=== PATIENT | male | born 1950 | race African-American/Black ===

== ENCOUNTER 2019-05-03 00:11 | Inpatient (IN) | payer OTHER, MEDICARE ==
[~2019-05-03] VITALS: Ht 182.9 cm; Wt 99.8 kg
[2019-05-03] MEDS ORDERED: NIFE30ER PO (00:25)
[2019-05-03] MEDS ORDERED: POTA8 PO (00:26)
[2019-05-03] MEDS ORDERED: HYDCHL12.5 PO (00:26)
[2019-05-03 00:57] LABS: BASOPHILS ABSOLUTE AUTO 0.02 K/mm3 (0.00-0.23); BASOPHILS PERCENT AUTO 0 % (0-2); EOSINOPHILS ABSOLUTE AUTO 0.01 K/mm3 (0.00-0.68); EOSINOPHILS PERCENT AUTO 0 % (0-6); Hematocrit 45.5 % (37.0-53.0); Hemoglobin 15.2 g/dL (13.5-17.5); IMMATURE GRAN ABSOLUTE AUTO 0.05 K/mm3 (0.00-0.10); IMMATURE GRAN PERCENT AUTO 0 % (0-1); LYMPHOCYTES ABSOLUTE AUTO 1.74 K/mm3 (0.84-5.20); LYMPHOCYTES PERCENT AUTO 14 % (21-46); MONOCYTES ABSOLUTE AUTO 1.15 K/mm3 (0.16-1.47); MONOCYTES PERCENT AUTO 9 % (4-13); Mean Corpuscular HGB 27.9 pg (26.0-34.0); Mean Corpuscular HGB Conc 33.4 g/dL (31.5-36.5); Mean Corpuscular Volume 84 fL (80-100); Mean Platelet Volume 9.1 fL (9.1-12.4); NEUTROPHILS ABSOLUTE AUTO 9.65 K/mm3 (1.96-9.15); NEUTROPHILS PERCENT AUTO 76 % (41-73); Platelet Count 371 K/mm3 (150-400); RDW Coefficient Variation 13.2 % (11.7-14.2); RDW Standard Deviation 40.1 fL (35.1-46.3); Red Blood Cell Count 5.45 M/mm3 (4.30-5.90); White Blood Cell Count 12.62 K/mm3 (4.00-11.30)
[2019-05-03 01:20] LABS: Albumin, Blood 4.1 g/dL (3.4-5.0); Albumin/Globulin Ratio 1.2 (0.8-1.8); Bilirubin, Total 1.1 mg/dL (0.1-1.0); Bun/Creatinine Ratio 25.2 (12.0-20.0); Calcium, Blood 9.2 mg/dL (8.5-10.1); Creatinine, Blood 1.35 mg/dL (0.60-1.20); Globulin, Blood 3.5 g/dL (2.2-4.0); Magnesium, Blood 2.3 mg/dL (1.6-2.4); Potassium, Blood 3.3 mmol/L (3.5-5.5); Total Protein, Blood 7.6 g/dL (6.4-8.2)
[2019-05-03 01:48] LABS: Source, Urine Clean Catch
[2019-05-03 01:57] LABS: Blood, Urine 1+ (Neg); Glucose Qualitative, Urine Neg (Neg); Ketones, Urine 3+ (Neg); Leukocyte Esterase, Urine 1+ (Neg); Nitrite, Urine Neg (Neg); Protein, Urine 3+ (Neg); Urobilinogen, Urine 2+ (Normal)
[2019-05-03 02:00] LABS: Bilirubin, Urine 1+ (Neg); Color, Urine Amber (P-Yellow)
[2019-05-03 02:03] LABS: Appearance, Urine Hazy (Clear)
[2019-05-03 02:05] LABS: Bacteria Mod /hpf; Hyaline Casts 0-2 /lpf (0-2); Mucus Light ({null, 0-Heavy}); Red Blood Cells, Urine 0-2 /hpf (0-2); Squamous Epithelial Cells Few /hpf (Few)
--- NOTE | 2019-05-03 05:40 | NUR ---
PT alert and oriented x4. Vital signs stable. No complaints of pain or nausea. NG tube in place on Low-int suction. IVF infusing. NPO
--- NOTE | 2019-05-03 18:05 | NUR ---
SHIFT SUMMARY PT A&O, VITALS WITHIN BASELINE. AMBULATES IND TO BATHROOM AND REPORTS PASSING FLATUS TODAY. DENIED PAIN T/O SHIFT. NG PATENT AND DRAINING BROWN LIQUID. IV FLUIDS RUNNING WITHOUT DIFFICULTY. NO ACUTE CHANGES. PT CURRENTLY RESTING IN BED WITH CALL LIGHT WITHIN REACH.
[2019-05-04 04:08] LABS: BASOPHILS ABSOLUTE AUTO 0.05 K/mm3 (0.00-0.23); BASOPHILS PERCENT AUTO 0 % (0-2); EOSINOPHILS ABSOLUTE AUTO 0.14 K/mm3 (0.00-0.68); EOSINOPHILS PERCENT AUTO 1 % (0-6); Hematocrit 44.1 % (37.0-53.0); Hemoglobin 14.7 g/dL (13.5-17.5); IMMATURE GRAN ABSOLUTE AUTO 0.06 K/mm3 (0.00-0.10); IMMATURE GRAN PERCENT AUTO 1 % (0-1); LYMPHOCYTES ABSOLUTE AUTO 1.89 K/mm3 (0.84-5.20); LYMPHOCYTES PERCENT AUTO 14 % (21-46); MONOCYTES PERCENT AUTO 11 % (4-13); Mean Corpuscular HGB 28.1 pg (26.0-34.0); Mean Corpuscular HGB Conc 33.3 g/dL (31.5-36.5); Mean Corpuscular Volume 84 fL (80-100); NEUTROPHILS ABSOLUTE AUTO 9.67 K/mm3 (1.96-9.15); NEUTROPHILS PERCENT AUTO 73 % (41-73); Platelet Count 335 K/mm3 (150-400); RDW Coefficient Variation 13.4 % (11.7-14.2); RDW Standard Deviation 41.4 fL (35.1-46.3); Red Blood Cell Count 5.24 M/mm3 (4.30-5.90); White Blood Cell Count 13.21 K/mm3 (4.00-11.30)
[2019-05-04 04:28] LABS: Albumin, Blood 3.5 g/dL (3.4-5.0); Anion Gap 10 mmol/L (6-16); Blood Urea Nitrogen 26 mg/dL (8-24); Bun/Creatinine Ratio 22.4 (12.0-20.0); CO2, Blood 27 mmol/L (21-32); Calcium, Blood 8.7 mg/dL (8.5-10.1); Chloride, Blood 104 mmol/L (98-108); Creatinine, Blood 1.16 mg/dL (0.60-1.20); Glomerular Filtration Rate >60 (60-); Glucose, Blood 94 mg/dL (70-99); Phosphorus, Blood 2.7 mg/dL (2.5-4.9); Potassium, Blood 2.8 mmol/L (3.5-5.5); Sodium, Blood 141 mmol/L (136-145)
--- NOTE | 2019-05-04 06:08 | NUR ---
SHIFT SUMMARY: PT HAS DONE WELL THIS SHIFT. DENIES PAIN AND N/V. NG TUBE IN PLACE CONNECTED TO LOW INTERMITTENT SUCTION. TOTAL OF 140ML FOR OUTPUT. NPO WITH FLUIDS INFUSING. PT INDEPENDENT IN ROOM. VOIDING WELL. PT REPORTS PASSING GAS. BP STABLE WITH IV HYDRALAZINE.
--- NOTE | 2019-05-04 17:49 | NUR ---
SHIFT SUMMARY PT CONTINUING TO DO WELL THIS SHIFT. KELLEY NGT BEING CLAMPED FOR 3.5 HOURS WITH NO N/V OR ABD PAIN. NGT DC'D AT THIS TIME PER ORDERS. PT REPORTS PASSING SMALL AMOUNT OF GAS INTERMITTENTLY TODAY. ABD IS STILL MODERATELY DISTENDED, BUT SOFT TO TOUCH. HYPERACTIVE BTS X4 QUAD. PLAN IS TO ADV DIET TO CLEAR LIQ IN MORNING. PT UP INDEP IN ROOM TO SIT UP IN BED AND AMBULATING AROUND ROOM FREQUENTLY. USES CALL LIGHT APPROPRIATELY.
[2019-05-05 04:44] LABS: BASOPHILS ABSOLUTE AUTO 0.03 K/mm3 (0.00-0.23); BASOPHILS PERCENT AUTO 0 % (0-2); EOSINOPHILS ABSOLUTE AUTO 0.13 K/mm3 (0.00-0.68); EOSINOPHILS PERCENT AUTO 1 % (0-6); Hematocrit 46.3 % (37.0-53.0); Hemoglobin 15.3 g/dL (13.5-17.5); IMMATURE GRAN ABSOLUTE AUTO 0.04 K/mm3 (0.00-0.10); IMMATURE GRAN PERCENT AUTO 0 % (0-1); LYMPHOCYTES ABSOLUTE AUTO 1.47 K/mm3 (0.84-5.20); LYMPHOCYTES PERCENT AUTO 11 % (21-46); MONOCYTES ABSOLUTE AUTO 1.13 K/mm3 (0.16-1.47); MONOCYTES PERCENT AUTO 9 % (4-13); Mean Corpuscular HGB 28.3 pg (26.0-34.0); Mean Corpuscular Volume 86 fL (80-100); Mean Platelet Volume 9.3 fL (9.1-12.4); NEUTROPHILS ABSOLUTE AUTO 10.15 K/mm3 (1.96-9.15); NEUTROPHILS PERCENT AUTO 78 % (41-73); Platelet Count 355 K/mm3 (150-400); RDW Coefficient Variation 13.5 % (11.7-14.2); RDW Standard Deviation 42.4 fL (35.1-46.3); White Blood Cell Count 12.95 K/mm3 (4.00-11.30)
[2019-05-05 05:01] LABS: Albumin, Blood 3.7 g/dL (3.4-5.0); Anion Gap 10 mmol/L (6-16); Blood Urea Nitrogen 29 mg/dL (8-24); CO2, Blood 25 mmol/L (21-32); Chloride, Blood 104 mmol/L (98-108); Creatinine, Blood 1.21 mg/dL (0.60-1.20); Glomerular Filtration Rate >60 (60-); Glucose, Blood 114 mg/dL (70-99); Potassium, Blood 3.1 mmol/L (3.5-5.5); Sodium, Blood 139 mmol/L (136-145)
--- NOTE | 2019-05-05 05:04 | NUR ---
PATIENT HAD A RESTLESS NIGHT, WAS ABLE TO FALL ASLEEP FOR 3-4 HOURS THIS MORNING. NO PAIN, NO NAUSEA, OR VOMITTING. hE HAS BEEN UP IN HIS ROOM WALKING AROUND AND IN THE JUAN ONCE. NO BM THIS SHIFT. BLADDERSCAN FOR 673CC. PATIENT STTEMPTED AGAIN TO VOID ANS WAS RACHELE TO THOUGH HE DID NOT SAVE IT TO BE MEASURED. HE STATED THAT HE HAD A WEAK STREAM FOR APPROXIMATELY 7-8 SECONDS. NO OTHER ACUTE CHANGES. USING CALL LIGHT APPROPRIATELY.
--- NOTE | 2019-05-05 18:03 | NUR ---
SHIFT SUMMARY PT A&OX4, VSS, PT DENIES FLATUS OR BM, REP BELCHING, ABD SOFT NONTENDER BLOATED. DENIES PAIN. DENIES N&V, KELLEY CL DIET, LOW PO INTAKE; ENC SIPS/CHIPS ICE. HTN MANAGED WITH IV HYDRALAZINE PER EMAR. AMB HALLWAYS AND SITTING IN CHAIR. VOIDING WELL. WILL REPORT TO ONCOMING NOC RN.
[2019-05-06 04:25] LABS: BASOPHILS ABSOLUTE AUTO 0.02 K/mm3 (0.00-0.23); BASOPHILS PERCENT AUTO 0 % (0-2); EOSINOPHILS ABSOLUTE AUTO 0.07 K/mm3 (0.00-0.68); EOSINOPHILS PERCENT AUTO 1 % (0-6); Hematocrit 43.3 % (37.0-53.0); Hemoglobin 14.2 g/dL (13.5-17.5); IMMATURE GRAN ABSOLUTE AUTO 0.04 K/mm3 (0.00-0.10); IMMATURE GRAN PERCENT AUTO 0 % (0-1); LYMPHOCYTES ABSOLUTE AUTO 1.07 K/mm3 (0.84-5.20); LYMPHOCYTES PERCENT AUTO 10 % (21-46); MONOCYTES ABSOLUTE AUTO 1.22 K/mm3 (0.16-1.47); MONOCYTES PERCENT AUTO 11 % (4-13); Mean Corpuscular HGB Conc 32.8 g/dL (31.5-36.5); Mean Corpuscular Volume 85 fL (80-100); Mean Platelet Volume 9.1 fL (9.1-12.4); NEUTROPHILS ABSOLUTE AUTO 8.66 K/mm3 (1.96-9.15); NEUTROPHILS PERCENT AUTO 78 % (41-73); Platelet Count 323 K/mm3 (150-400); RDW Coefficient Variation 13.4 % (11.7-14.2); Red Blood Cell Count 5.08 M/mm3 (4.30-5.90); White Blood Cell Count 11.08 K/mm3 (4.00-11.30)
[2019-05-06 04:44] LABS: Albumin, Blood 3.4 g/dL (3.4-5.0); Anion Gap 9 mmol/L (6-16); Blood Urea Nitrogen 27 mg/dL (8-24); Bun/Creatinine Ratio 24.8 (12.0-20.0); CO2, Blood 26 mmol/L (21-32); Calcium, Blood 8.9 mg/dL (8.5-10.1); Chloride, Blood 103 mmol/L (98-108); Creatinine, Blood 1.09 mg/dL (0.60-1.20); Glomerular Filtration Rate >60 (60-); Glucose, Blood 113 mg/dL (70-99); Phosphorus, Blood 2.8 mg/dL (2.5-4.9); Potassium, Blood 3.1 mmol/L (3.5-5.5); Sodium, Blood 138 mmol/L (136-145)
--- NOTE | 2019-05-06 05:11 | NUR ---
NO ACUTE CHANGES. PATIENT SLEPT MOST OF THE NIGHT. HE HAD BEEN WALKING IN THE HALLS AT THE BEGINNING OF THE SHIFT. NO COMPLAINTS OF PAIN. HE IS DRINKING WATER WELL, NO NAUSEA. NO BM AND NO FLATUS THAT HE KNOWS OF. HE ASKED TO KEEP HIS CLEAR LIQUID TRAY IN HIS ROOM OVER THE NIGHT.
--- NOTE | 2019-05-06 10:17 | NUR ---
PT EXPRESSED CONCERN OVER HIS NUTRITIONAL STATUS AND FEELING "QUEASY". TALKED TO DR ADAMES AND DR MORSE. NO NEW ORDERS AT THIS TIME. WILL CONTINUE WITH CLEAR LIQUID DIET AND ENCOURAGING AMBULATION.
--- NOTE | 2019-05-06 16:09 | NUR ---
SPOKE TO DR. MORSE R/T PULSE OF 121. RECEIVED NEW ORDERS TO START TELE. PATIENT C/O WEAKNESS BUT STATES ITS HASNT CHANGED. NO REPORTS OF CHEST PAIN WHEN ASKED. DENIES SHORTNESS OF BREATH.
--- NOTE | 2019-05-06 16:47 | NUR ---
SHIFT SUMMARY PT IS ALERT AND ORIENTED. NO COMPLAINTS OF PAIN DURING SHIFT. SOME COMPLAINTS OF FEELING "QUEASY. HAS BEEN TOLERATING PO, NOT EATING OR DRINKING A LOT BUT HAS BEEN KEEPING IT DOWN. HAS EXPRESSED CONCERN WITH HIS NUTRITIONAL STATUS. ENCOURAGING HIM TO DRINK/EAT THE ENSURE AND JELLO. HAS BEEN AMBULATING IN THE HALLWAYS AND IN THE ROOM, COMPLAINS OF FEELING A LITTLE WEAK THROUGHOUT THE DAY. NO REPORTS OF DIZZINESS. STOMACH STILL DISTENDED, BOWEL SOUNDS HEARD. STILL REPORTS NO PASSAGE OF GAS. EXPRESSED FEELING DEPRESSED R/T HOW LONG IT TAKES FOR HIM TO RECOVER. MOOD AND AFFECT HAS IMPROVED A LITTLE DURING THE SHIFT. PLAN IS TO ENCOURAGE AMBULATION, MAINTAIN CLEAR FLUIDS, AND CONTINUE TO MONITOR.
--- NOTE | 2019-05-07 07:22 | NUR ---
SUMMARY CALLED TO LAST NIGHT REGARDING PT DIAPHORETIC.PROD OF WHITE BLOOD STREAKED MUCUS. NO VOID WITH 194 BLADDER SCAN.ABD SEVERELY DISTENDED WITH ONSET OF BILE COLORED EMESIS.PT STATING NO NAUSEA, BUT SUDDEN VOMITING.PT HAS ONLY TAKEN MINIMAL PO LIQUIDS WITH NO IV FLUIDS ORDERED AND ABNORMAL LABS.VS ALSO DISCUSSED. NG WAS ATTEMPTED HOWEVER,PT GAGGING WITH VOMIT SO HARSH THAT NG PUSHING BACK UP AND COILING IN THROAT.I ATTEMPTED X2 AND MANAGER OF CASE MANAGEMENT Brittany MAR ATTEMPTEDWITH SMALLEST TUBE AVAILABLE #14 STILL UNABLE TO PASS TUBE. PT REFUSING FURTHER ATTEMPTS. THIS AM, PT SOUNDING GAGGING, BUT STATES DELIBERATE HE FEELS IT HELPS RID HIM OF HICCUPS.1 LITER NS BOLUS WAS GIVEN PER ORDERS WELL.
--- NOTE | 2019-05-07 09:57 | NUR ---
DR ADAMES ROUNDING ON PT, PT UP IN CHAIR, CHANGED LINEN, ENCOURAGE SHOWER TODAY. PT STATES HE WILL AMBULATE TODAY
--- NOTE | 2019-05-07 11:31 | NUR ---
dr morgan rounding on pt, in room, pt up in chair
[2019-05-07 13:09] LABS: Albumin, Blood 3.4 g/dL (3.4-5.0); Anion Gap 11 mmol/L (6-16); Blood Urea Nitrogen 30 mg/dL (8-24); Bun/Creatinine Ratio 24.2 (12.0-20.0); CO2, Blood 21 mmol/L (21-32); Calcium, Blood 9.2 mg/dL (8.5-10.1); Chloride, Blood 104 mmol/L (98-108); Creatinine, Blood 1.24 mg/dL (0.60-1.20); Glomerular Filtration Rate >60 (60-); Glucose, Blood 130 mg/dL (70-99); Phosphorus, Blood 2.3 mg/dL (2.5-4.9); Potassium, Blood 3.1 mmol/L (3.5-5.5); Sodium, Blood 136 mmol/L (136-145)
--- NOTE | 2019-05-07 16:20 | NUR ---
shift summary: pt remained a/0 x 4, pleasant/cooperative, slight flat affect but amenable and polite. pt denies nausea, no vomiting this shift, but is unable to tolerate clear liquid diet. abdomen is firm, larger than baseline. BT in lower quadrants minimal and distant. pt denies need for any pain medication per mar. pt has ambulated in hallway x 2 this shift in excess of 600 ft each session. pt begun on parenteral IV nutrition while unable to tolerate clear liquid diet. dr alvarez will reassess pt this afternoon to determine if he himself needs to attempt to insert an NG. pt's visited this shift for an extended time.
[2019-05-08 04:24] LABS: Anion Gap 6 mmol/L (6-16); Blood Urea Nitrogen 25 mg/dL (8-24); Bun/Creatinine Ratio 22.1 (12.0-20.0); CO2, Blood 28 mmol/L (21-32); Calcium, Blood 8.8 mg/dL (8.5-10.1); Chloride, Blood 101 mmol/L (98-108); Creatinine, Blood 1.13 mg/dL (0.60-1.20); Glomerular Filtration Rate >60 (60-); Glucose, Blood 124 mg/dL (70-99); Phosphorus, Blood 2.5 mg/dL (2.5-4.9); Sodium, Blood 135 mmol/L (136-145)
--- NOTE | 2019-05-08 06:07 | NUR ---
SHIFT SUMMARY LYING IN SEMI FOWLERS WITH EYES CLOSED. ADB DISTENTION CONTINUES, DISTANT, HYPOACTIVE BOWEL SOUNDS NOTED. ONE OCCURANCE OF ELEVATED HR IN THE 120'S REPORTED BY POWER PLANT MANAGER, PT REPORTS THAT HE AMBULATED TO BATHROOM AT THAT TIME. DENIES CURRENT PAIN, FURTHER NEEDS, OR OTHER WANTS AT THIS TIME. SAFETY MEASURES IN PLACE. WILL GIVE HAND OFF TO ONCOMING SHIFT USING SBAR.
--- NOTE | 2019-05-08 06:55 | NUR ---
RECVD REPORT FROM PREVIOUS SHIFT RN HARMONY, PT LYING IN BED TALKING ON PHONE, A/0 X 4, BED IN LOWEST POSITION, BED RAILS UP X 2, CALL LIGHT WITHIN REACH
[2019-05-08 09:06] LABS: BASOPHILS ABSOLUTE AUTO 0.02 K/mm3 (0.00-0.23); BASOPHILS PERCENT AUTO 0 % (0-2); EOSINOPHILS ABSOLUTE AUTO 0.07 K/mm3 (0.00-0.68); EOSINOPHILS PERCENT AUTO 1 % (0-6); Hematocrit 42.1 % (37.0-53.0); Hemoglobin 13.7 g/dL (13.5-17.5); IMMATURE GRAN ABSOLUTE AUTO 0.07 K/mm3 (0.00-0.10); IMMATURE GRAN PERCENT AUTO 1 % (0-1); LYMPHOCYTES ABSOLUTE AUTO 1.07 K/mm3 (0.84-5.20); LYMPHOCYTES PERCENT AUTO 10 % (21-46); MONOCYTES ABSOLUTE AUTO 1.21 K/mm3 (0.16-1.47); MONOCYTES PERCENT AUTO 11 % (4-13); Mean Corpuscular HGB 28.1 pg (26.0-34.0); Mean Corpuscular HGB Conc 32.5 g/dL (31.5-36.5); Mean Corpuscular Volume 86 fL (80-100); Mean Platelet Volume 10.2 fL (9.1-12.4); NEUTROPHILS ABSOLUTE AUTO 8.25 K/mm3 (1.96-9.15); NEUTROPHILS PERCENT AUTO 77 % (41-73); Platelet Count 324 K/mm3 (150-400); RDW Coefficient Variation 13.6 % (11.7-14.2); RDW Standard Deviation 43.4 fL (35.1-46.3); Red Blood Cell Count 4.87 M/mm3 (4.30-5.90); White Blood Cell Count 10.69 K/mm3 (4.00-11.30)
--- NOTE | 2019-05-08 09:10 | NUR ---
ASSISTED DR ADAMES PLACED 16 FR NG TUBE, WNL, IMMEDIATELY BEGAN REMOVING DARK BROWN/GREEN THICK STOMACH CONTENTS. ENCOURAGED PT TO SLOW BREATHING, THERAPEUTIC CONFERSATION PT SHOWS RAPID RESPIRATORY RATE. RECEIVED ORDERS FOR TROPONIN AND EKG R/T CHEST PAIN.
--- NOTE | 2019-05-08 15:03 | NUR ---
pt transferred to room via stretcher, transferred himself to bed, states he is feeling weak, no dizziness/lightheadedness, denies pain or SOB. belly distended, firm r/t studies contrast.
--- NOTE | 2019-05-08 15:50 | NUR ---
pt transported to imaging via wheelchair by Shelli manager of radiology
--- NOTE | 2019-05-08 17:29 | NUR ---
shift summary: pt remained a/o x 4, pleasant/cooperative. on arrival, but nauseous, BT hypoactive and distand, states he has vomited once this AM, abd tender. encouraged pt to be up in room and ambulate. approx 0900 dr alvarez inserted NG tube with immediate removal of 1000 ml dark green/brown liquid and solid material. the following 3-5 hrs pt states he "feels much better", smiling even whereas he had previously been despondent r/t disease process and mechanical issues with GI system. approx 1230 pt transferred to imaging to begin small bowel follow through study, NG tube clamped and will remain so t/o series. pt returned to room approx 1500 with abdomen increasingly distended and feeling weak. Small bowel follow through series is continuing at this time with pt transferred to imaging for each necessary film, remaining distended, tender, nauseous. NG tube to remain clamped for this process.
--- NOTE | 2019-05-08 17:55 | NUR ---
pt began vomiting around NG tube. due to risk of aspiration and pt's stated discomfort, pt refuses further imaging studies. resumed suction on NG tube, notified Dr Hadley and imaging.
--- NOTE | 2019-05-08 20:00 | NUR ---
VOICED THAT HE WAS FEELING VERY DISTENDED AND UNCOMFORTABLE. NG TUBE PLACEMENT VERIFIED WITH AIR BOLUS AND RESIDUAL CHECK. ASPIRATION OF DARK GREEN/BROWN VISCOUS FLUID NOTED. LINE AND SUCTION CANISTER CHECKS COMPLETED. LINE IRRIGATED WITH 500ML STERILE SALINE. CANISTERS CHANGED AND LINES CLEARED, PLACED ON LIWS. VOICES MUCH RELIEF OF PRESSURE. ABDOMEN PALPATION SHOWS SIGNIFICANT DECOMPRESSION OF ABDOMINAL DISTENTION. 1800ML OUTPUT NOTED INTO CANISTERS. SAFETY MEASURES IN PLACE. WILL CONTINUE TO MONITOR.
--- NOTE | 2019-05-08 22:20 | NUR ---
VOICED THAT HE WAS STARTING TO FEEL DISTENDED AND UNCOMFORTABLE AGAIN. NG TUBE PLACEMENT REVERIFIED WITH AIR BOLUS AND RESIDUAL CHECK. LINE AND SUCTION CANISTER RECHECKED. LINE IRRIGATED WITH 300ML STERILE SALINE. CANISTERS CHANGED AND LINES CLEARED, STILL ON LIWS. VOICES MUCH RELIEF OF PRESSURE. ABDOMEN PALPATION SHOWS DECOMPRESSION OF ABDOMINAL DISTENTION. 1100ML OUTPUT NOTED INTO CANISTERS. SAFETY MEASURES IN PLACE. WILL CONTINUE TO MONITOR.
[2019-05-09 04:46] LABS: Albumin, Blood 3.1 g/dL (3.4-5.0); Anion Gap 6 mmol/L (6-16); Blood Urea Nitrogen 29 mg/dL (8-24); Bun/Creatinine Ratio 20.4 (12.0-20.0); CO2, Blood 31 mmol/L (21-32); Calcium, Blood 9.4 mg/dL (8.5-10.1); Chloride, Blood 99 mmol/L (98-108); Creatinine, Blood 1.42 mg/dL (0.60-1.20); Glomerular Filtration Rate 52 (60-); Glucose, Blood 125 mg/dL (70-99); Phosphorus, Blood 3.6 mg/dL (2.5-4.9); Potassium, Blood 3.1 mmol/L (3.5-5.5); Sodium, Blood 136 mmol/L (136-145)
--- NOTE | 2019-05-09 07:40 | NUR ---
SHIFT SUMMARY LYING IN SEMI FOWLERS WITH EYES OPEN. ABDOMEN DISTENDED, BUT SOFT. HYPERATIVE BOWEL TONES IN UPPER, AND HYPOACTIVE BOWEL TONES NOTED IN LOWER ABDOMEN. HAS HAD SIGNIFICANT OUTPUT FROM NG TUBE, NOW SHOWING 400ML IN CANISTER. DENIES PAIN, DISCOMFORT, OR FURTHER NEEDS AT THIS TIME. SAFETY MEASURES IN PLACE. WILL GIVE HAND OFF TO ONCOMING SHIFT USING SBAR.
--- NOTE | 2019-05-09 12:40 | NUR ---
PT TRANSPORTED TO [facility]. DR. ADAMES IN TO SEE PT. SURGERY CONSENT OBTAINED. NG CONNECTED TO INTERMITENT SUCTION.
--- NOTE | 2019-05-09 12:50 | NUR ---
PATIENT TO DAY SURGERY AT THIS TIME.
--- NOTE | 2019-05-09 13:01 | NUR ---
POTASSIOUM INFUSTION STOPPED PRE-OP PER DR. CHRISTIANSEN REQUEST TO STOP INFUSION.
--- NOTE | 2019-05-09 13:21 | NUR ---
800CC GREEN FLUID SUCTIONED VIA NG TUBE.
--- NOTE | 2019-05-09 13:41 | NUR ---
05/09/19 1341 Anette Barker CATH PLACED BY SHIELA FELIX.
--- NOTE | 2019-05-09 17:05 | NUR ---
PATIENT RETURNED TO ROOM FROM PACU. AWAKE. DENIES NAUSEA. STATES PAIN 'A LITTLE ABOVE A ZERO.' ABD WITH MIDLINE DRESSING AND PAGE WOUND VAC, INTACT. BT'S HYPO. LS CLEAR. BIOX 94% ON RA. HRR. FC IN PLACE, DRAIN ING DARK YELLOW URINE; STAT LOCK IN PLACE. PAS IN PLACE. IVF INFUSING PER ORDER LFA. CALL LIGHT IN REACH. PHONE CALL TO PER PATIENT WITH UPDATE. HYPERTENSIVE. HYDRALAZINE IV ADMIN. CONT TO MONITOR.
--- NOTE | 2019-05-09 18:49 | NUR ---
SHIFT SUMMARY PATIENT CONT TO DENY PAIN, NAUSEA. BP RESPONDING TO IV HYDRALAZINE ADMINISTERED. TALKING ON PHONE TO , STATES HE FEELS GREAT. NG TO LIS. NO C/O. ABD BINDER IN PLACE.
--- NOTE | 2019-05-10 | NUR ---
PT BACK FROM WALK AND REFUSING TO BE CONNECTED TO LIS VIA NG TUBE DESPITE EDUCATION PROVIDED.
--- NOTE | 2019-05-10 04:49 | NUR ---
ANOTHER ATTEMPT TO CONNECT PT TO SUCTION. MORE EDUCATION PROVIDED. PT REFUSING AND REPORTS WANTING TO SPEAK WITH DR. ADAMES.
--- NOTE | 2019-05-10 05:02 | NUR ---
SHIFT SUMMARY: PT POD #1 FOR BOWEL RESECTION W/ LYSIS OF ADHESIONS. ABSENT BOWEL TONES. DENIES PASSING GAS. PT REFUSING NG SUCTION THROUGHOUT SHIFT DESPITE EDUCATION PROVIDED. DENIES N/V. LINN DRAINING DARK YELLOW URINE. CLINIMIX INFUSING PER EMAR. PT REPORTS PAIN, HOWEVER REFUSING PAIN MEDICATION. AMBULATING HALLWAY INDEPENDENTLY. BP STABLE THIS SHIFT WITHOUT NEED FOR PRN HYDRALAZINE.
[2019-05-10 07:32] LABS: BASOPHILS ABSOLUTE AUTO 0.03 K/mm3 (0.00-0.23); BASOPHILS PERCENT AUTO 0 % (0-2); EOSINOPHILS ABSOLUTE AUTO 0.05 K/mm3 (0.00-0.68); EOSINOPHILS PERCENT AUTO 0 % (0-6); Hematocrit 40.5 % (37.0-53.0); Hemoglobin 13.2 g/dL (13.5-17.5); IMMATURE GRAN ABSOLUTE AUTO 0.16 K/mm3 (0.00-0.10); IMMATURE GRAN PERCENT AUTO 1 % (0-1); LYMPHOCYTES ABSOLUTE AUTO 1.44 K/mm3 (0.84-5.20); LYMPHOCYTES PERCENT AUTO 13 % (21-46); MONOCYTES ABSOLUTE AUTO 1.15 K/mm3 (0.16-1.47); MONOCYTES PERCENT AUTO 10 % (4-13); Mean Corpuscular HGB 27.5 pg (26.0-34.0); Mean Corpuscular HGB Conc 32.6 g/dL (31.5-36.5); Mean Corpuscular Volume 84 fL (80-100); Mean Platelet Volume 9.3 fL (9.1-12.4); NEUTROPHILS ABSOLUTE AUTO 8.69 K/mm3 (1.96-9.15); NEUTROPHILS PERCENT AUTO 75 % (41-73); Platelet Count 312 K/mm3 (150-400); RDW Coefficient Variation 13.7 % (11.7-14.2); RDW Standard Deviation 42.5 fL (35.1-46.3); White Blood Cell Count 11.52 K/mm3 (4.00-11.30)
--- NOTE | 2019-05-10 07:50 | NUR ---
pt laying in bed hypo bt upper abd ngt clamped pt denies nausea talked with pt re taking his po med to control hr
[2019-05-10 07:54] LABS: Bun/Creatinine Ratio 26.9 (12.0-20.0); Calcium, Blood 8.5 mg/dL (8.5-10.1); Creatinine, Blood 1.3 mg/dL (0.60-1.20); Potassium, Blood 4.6 mmol/L (3.5-5.5)
--- NOTE | 2019-05-10 08:45 | NUR ---
dr riley by to see pt talked with pt re why he still has a ngt and possibilty of ileus postop i talked with dr meléndez pt encouraged pt to take his po toprol er to reg hr with sip of h20
--- NOTE | 2019-05-10 10:00 | NUR ---
DR LYN BY TO SEE PT
--- NOTE | 2019-05-10 11:06 | NUR ---
PER PLASTIC PRODUCTION MACHINE SETTER NELLY HR 98 IV TOPROL GIVEN 2.5 MG PT TALKING WITH DIETARY PT FAMILY AT BEDSIDE
--- NOTE | 2019-05-10 15:15 | NUR ---
pt sleeping dr alvarez by to see pt
--- NOTE | 2019-05-10 17:37 | NUR ---
pt awake watching tv stated no nausea still occ belching did not director decision support ngt today
--- NOTE | 2019-05-11 00:07 | NUR ---
TEMITOPE: TEMITOPE CATH D/C'D PER PT REQ. PT KELLEY WELL. PT EDUCATED ON PLAN TO MONITOR FOR RETENTION AFTER LINN D/C.
[2019-05-11 05:23] LABS: BASOPHILS ABSOLUTE AUTO 0.04 K/mm3 (0.00-0.23); BASOPHILS PERCENT AUTO 0 % (0-2); EOSINOPHILS ABSOLUTE AUTO 0.38 K/mm3 (0.00-0.68); EOSINOPHILS PERCENT AUTO 3 % (0-6); Hematocrit 39.6 % (37.0-53.0); IMMATURE GRAN ABSOLUTE AUTO 0.39 K/mm3 (0.00-0.10); IMMATURE GRAN PERCENT AUTO 3 % (0-1); LYMPHOCYTES ABSOLUTE AUTO 1.76 K/mm3 (0.84-5.20); LYMPHOCYTES PERCENT AUTO 14 % (21-46); MONOCYTES ABSOLUTE AUTO 1.18 K/mm3 (0.16-1.47); MONOCYTES PERCENT AUTO 9 % (4-13); Mean Corpuscular HGB 27.8 pg (26.0-34.0); Mean Corpuscular HGB Conc 32.8 g/dL (31.5-36.5); Mean Corpuscular Volume 85 fL (80-100); Mean Platelet Volume 9.5 fL (9.1-12.4); NEUTROPHILS ABSOLUTE AUTO 9.08 K/mm3 (1.96-9.15); NEUTROPHILS PERCENT AUTO 71 % (41-73); Platelet Count 294 K/mm3 (150-400); RDW Coefficient Variation 13.6 % (11.7-14.2); RDW Standard Deviation 42.2 fL (35.1-46.3); Red Blood Cell Count 4.67 M/mm3 (4.30-5.90); White Blood Cell Count 12.83 K/mm3 (4.00-11.30)
[2019-05-11 05:51] LABS: Anion Gap 5 mmol/L (6-16); Blood Urea Nitrogen 27 mg/dL (8-24); Bun/Creatinine Ratio 24.5 (12.0-20.0); CO2, Blood 29 mmol/L (21-32); Calcium, Blood 8.2 mg/dL (8.5-10.1); Chloride, Blood 100 mmol/L (98-108); Glomerular Filtration Rate >60 (60-); Glucose, Blood 100 mg/dL (70-99); Potassium, Blood 3.6 mmol/L (3.5-5.5); Sodium, Blood 134 mmol/L (136-145); Triglycerides 194 mg/dL (30-160)
--- NOTE | 2019-05-11 06:41 | NUR ---
POD 3 A/P BOWEL RESECTION. PT VSS T/O NIGHT. DRESSING CDI. PT DENIED NEED FOR PAIN MEDS T/O NIGHT, REP PAIN KELLEY AND SLOWLY IMPROVING. BT HYPO, ABD SOFT TO PALP. NGT CLAMPED T/O NIGHT, PT KELLEY SIPS OF WATER, HAD NO C/O N/V, REP NO FLATUS YET. LINN D/C'D PER PT REQ, PT VOIDING W/O DIFFICULTY AFTER D/C. PT REP FEELING "A LITTLE DOWN" SUPPORT GIVEN PRN T/O NIGHT. PT ENC TO AMB IN HALLS, PT VERBALIZED PLAN TO AMB TODAY. PT USING CALL LIGHT FOR ASSISTANCE, WILL CONT TO MONITOR UNTIL REP GIVEN TO ONCOMING RN.
--- NOTE | 2019-05-11 08:38 | NUR ---
ABRIO IN TO SEE PT
--- NOTE | 2019-05-11 10:08 | NUR ---
AT APPROX. 0800 PT REQUESTED MORNING MEDICATIONS BE ADMINSTERED LATER. PT CURRENTLY SHAVING IN BATHROOM IND. ENCOURAGED SHOWERING AND AMBULATION IN HALLWAY TODAY.
--- NOTE | 2019-05-11 10:55 | NUR ---
DR. BURK IN TO SEE PT AT 1045, NO NEW ORDERS.
--- NOTE | 2019-05-11 18:11 | NUR ---
SHIFT SUMMARY PT A&O, VSS, ON RA. NG IN PLACE WITHOUT SUCTION. AMBULATED IND IN HALLWAY 2X TODAY. DENIES PAIN BUT REPORTS ABD DISCOMFORT. STATES DISCOMFORT WAS REDUCED WITH AMBULATION AND ABD BINDER. ENCOURAGED TO CONT. AMBULATION. PRIVO DRESSING INTACT AND DRY WITH SHADOWING. PT REFUSED PHYSICAL ABD ASSESSMENT, ONLY PERMITTED VISUAL. ABD CONTINUES TO APPEAR DISTENDED, NO C/O NAUSEA. CONSUMING APPLE JUICE AND WATER ONLY TODAY PER PT REQUEST. CURRENTLY RESTING IN BED WITH CALL LIGHT WITHIN REACH.
[2019-05-12 04:06] LABS: BASOPHILS ABSOLUTE AUTO 0.07 K/mm3 (0.00-0.23); BASOPHILS PERCENT AUTO 1 % (0-2); EOSINOPHILS ABSOLUTE AUTO 0.35 K/mm3 (0.00-0.68); EOSINOPHILS PERCENT AUTO 2 % (0-6); IMMATURE GRAN ABSOLUTE AUTO 0.93 K/mm3 (0.00-0.10); IMMATURE GRAN PERCENT AUTO 7 % (0-1); LYMPHOCYTES ABSOLUTE AUTO 1.75 K/mm3 (0.84-5.20); LYMPHOCYTES PERCENT AUTO 12 % (21-46); MONOCYTES ABSOLUTE AUTO 1.12 K/mm3 (0.16-1.47); MONOCYTES PERCENT AUTO 8 % (4-13); Mean Corpuscular HGB 28.2 pg (26.0-34.0); Mean Corpuscular HGB Conc 33.3 g/dL (31.5-36.5); Mean Corpuscular Volume 85 fL (80-100); Mean Platelet Volume 9.4 fL (9.1-12.4); NEUTROPHILS ABSOLUTE AUTO 10.08 K/mm3 (1.96-9.15); NEUTROPHILS PERCENT AUTO 71 % (41-73); Platelet Count 325 K/mm3 (150-400); RDW Coefficient Variation 13.2 % (11.7-14.2); RDW Standard Deviation 40.7 fL (35.1-46.3); Red Blood Cell Count 4.61 M/mm3 (4.30-5.90)
[2019-05-12 04:26] LABS: Anion Gap 6 mmol/L (6-16); Blood Urea Nitrogen 25 mg/dL (8-24); CO2, Blood 25 mmol/L (21-32); Calcium, Blood 8.4 mg/dL (8.5-10.1); Chloride, Blood 100 mmol/L (98-108); Glomerular Filtration Rate >60 (60-); Glucose, Blood 120 mg/dL (70-99); Potassium, Blood 3.5 mmol/L (3.5-5.5); Sodium, Blood 131 mmol/L (136-145)
[2019-05-12 04:27] LABS: BAND PERCENT MAN 6 % (0-8); BASOPHILS PERCENT MAN 0 % (0-2); EOSINOPHILS ABSOLUTE MAN 0.14 K/mm3 (0.00-0.68); EOSINOPHILS PERCENT MAN 1 % (0-6); LYMPHOCYTES ABSOLUTE MAN 2.43 K/mm3 (0.84-5.20); LYMPHOCYTES PERCENT MAN 17 % (21-46); METAMYELOCYTE ABSOLUTE MAN 0.14 K/mm3 (0.00-0.00); METAMYELOCYTE PERCENT MAN 1 % (0-0); MONOCYTES PERCENT MAN 7 % (4-13); NEUTROPHILS ABSOLUTE MAN 10.58 K/mm3 (1.96-9.15); SEG NEUTROPHILS PERCENT MAN 68 % (41-73); TOTAL CELLS COUNTED 100
--- NOTE | 2019-05-12 07:23 | NUR ---
POD 4 S/P RESECTION. PT VSS T/O NIGHT, HR SINUS TACH 90'S PER TELE MONITOR. PAGE DRESSING INTACT W/NO ACTIVE DRNG NOTED. ABD DOES APPEAR SOMEWHAT MORE DISTENDED, BT HYPO, PT DENIED N/V, NO FLATUS YET. PO INTAKE MINIMAL. PT VOIDING URINE W/O DIFFICULTY. PT DECLINED NEED FOR PAIN MEDS, REP PAIN KELLEY AND THAT "EPISODES ARE GETTING LESS OFTEN" PT DOES APPEAR MORE FLAT AND LESS INTERACTIVE, ONLY ALLOWING MINIMAL CARE. SUPPORT AND ENC PROVIDED DURING ROUNDINGS, PT ENC TO AMB OUTSIDE OF ROOM, DID NOT LEAVE ROOM THIS SHIFT. PT IS USING CALL LIGHT FOR ASSISTANCE, REP GIVEN TO DAY RN.
--- NOTE | 2019-05-12 08:50 | NUR ---
DR. LYN IN TO SEE PT AT THIS TIME
--- NOTE | 2019-05-12 12:23 | NUR ---
DR. BURK IN TO SEE PT. NO NEW ORDERS AT THIS TIME
--- NOTE | 2019-05-12 18:21 | NUR ---
SHIFT SUMMARY POD #3 S/P BOWEL RESUCTION. PT A&0 W/VSS T/O SHIFT. HYPOACTIVE BT. NG IN PLACE, CLAMPED. PT REFUSED INT SUCTION DESPITE EDUCATION. DENIES N/V OR PASSING GAS TODAY. ABD BINDER IN PLACE AND AMBULATED 2X IND IN HALLWAYS THIS AFTERNOON WITH FREQUENT ENCOURAGEMENT. PAGE IN PLACE W/ DRESSING DRY AND INTACT. SOME SHADOWING NOTED ON DRESSING BUT NO ACTIVE DRAINAGE. TOLERATING PO LIQUIDS. POWERGLIDE IN LUE PLACED TODAY AND IS CURRENTLY INFUSING. FREQUENT SUPPORT AND ENCOURAGEMENT PROVIDED TODAY DUE TO PATIENT APPEARING WITHDRAWN.
[2019-05-13 05:05] LABS: BASOPHILS ABSOLUTE AUTO 0.06 K/mm3 (0.00-0.23); BASOPHILS PERCENT AUTO 1 % (0-2); EOSINOPHILS ABSOLUTE AUTO 0.36 K/mm3 (0.00-0.68); EOSINOPHILS PERCENT AUTO 3 % (0-6); Hematocrit 36.9 % (37.0-53.0); Hemoglobin 12.3 g/dL (13.5-17.5); IMMATURE GRAN PERCENT AUTO 8 % (0-1); LYMPHOCYTES ABSOLUTE AUTO 1.46 K/mm3 (0.84-5.20); LYMPHOCYTES PERCENT AUTO 12 % (21-46); MONOCYTES ABSOLUTE AUTO 1.05 K/mm3 (0.16-1.47); MONOCYTES PERCENT AUTO 9 % (4-13); Mean Corpuscular HGB 27.8 pg (26.0-34.0); Mean Corpuscular HGB Conc 33.3 g/dL (31.5-36.5); Mean Corpuscular Volume 84 fL (80-100); Mean Platelet Volume 9.6 fL (9.1-12.4); NEUTROPHILS ABSOLUTE AUTO 8.41 K/mm3 (1.96-9.15); NEUTROPHILS PERCENT AUTO 68 % (41-73); Platelet Count 319 K/mm3 (150-400); RDW Coefficient Variation 13.2 % (11.7-14.2); RDW Standard Deviation 40.7 fL (35.1-46.3); Red Blood Cell Count 4.42 M/mm3 (4.30-5.90); White Blood Cell Count 12.34 K/mm3 (4.00-11.30)
[2019-05-13 05:23] LABS: BAND PERCENT MAN 2 % (0-8); BASOPHILS PERCENT MAN 0 % (0-2); EOSINOPHILS ABSOLUTE MAN 0.24 K/mm3 (0.00-0.68); EOSINOPHILS PERCENT MAN 2 % (0-6); LYMPHOCYTES ABSOLUTE MAN 1.85 K/mm3 (0.84-5.20); LYMPHOCYTES PERCENT MAN 15 % (21-46); METAMYELOCYTE ABSOLUTE MAN 0.24 K/mm3 (0.00-0.00); METAMYELOCYTE PERCENT MAN 2 % (0-0); MONOCYTES ABSOLUTE MAN 0.61 K/mm3 (0.16-1.47); MONOCYTES PERCENT MAN 5 % (4-13); NEUTROPHILS ABSOLUTE MAN 9.37 K/mm3 (1.96-9.15); SEG NEUTROPHILS PERCENT MAN 74 % (41-73); TOTAL CELLS COUNTED 100
[2019-05-13 05:27] LABS: Alanine Aminotransfer (ALT/SGP 58 U/L (12-78); Albumin, Blood 2.3 g/dL (3.4-5.0); Albumin/Globulin Ratio 0.5 (0.8-1.8); Alk Phos 160 U/L (50-136); Anion Gap 9 mmol/L (6-16); Aspartate Aminotrans (AST/SGOT 44 U/L (12-37); Bilirubin, Total 0.4 mg/dL (0.1-1.0); Blood Urea Nitrogen 24 mg/dL (8-24); Bun/Creatinine Ratio 22.2 (12.0-20.0); CO2, Blood 24 mmol/L (21-32); Calcium, Blood 8.4 mg/dL (8.5-10.1); Chloride, Blood 100 mmol/L (98-108); Creatinine, Blood 1.08 mg/dL (0.60-1.20); Globulin, Blood 4.2 g/dL (2.2-4.0); Glomerular Filtration Rate >60 (60-); Glucose, Blood 103 mg/dL (70-99); Potassium, Blood 3.7 mmol/L (3.5-5.5); Sodium, Blood 133 mmol/L (136-145); Total Protein, Blood 6.5 g/dL (6.4-8.2)
--- NOTE | 2019-05-13 06:06 | NUR ---
SHIFT SUMMARY LYING IN SEMI FOWLERS WITH EYES CLOSED. IMPROVEMENT OF HYPOACTIVE BOWEL SOUNDS NOTED. ABD BINDER IN PLACE OVER WOULD VAC. DENIES PAIN, DISCOMFORT, OR FURTHER AT THIS TIME. SAFETY MEASURES IN PLACE. WILL GIVE HAND OFF TO ONCOMING SHIFT USING SBAR.
--- NOTE | 2019-05-13 17:05 | NUR ---
SHIFT SUMMARY NO ACUTE CHANGES THIS SHIFT. VSS. PT REPORTS THAT HE IS FEELING BETTER. PT CONT TO PASS GAS AND KELLEY CLEAR LIQ DIET. ADVANCING TO FULL LIQ DIET FOR DINNER. PT DENIES PAIN. MIDLINE PAGE WOUND VAC TO ABD REMAINS CDI WITH ABD BINDER IN PLACE. PT UP INDEPENDENTLY AMBULATING HALLWAYS. USING URINAL TO VOID. CLINIMX INFUSING PER ORDERS. PT USES CALL LIGHT APPROPRIATELY.
[2019-05-14 05:15] LABS: Hematocrit 36.1 % (37.0-53.0); Hemoglobin 11.9 g/dL (13.5-17.5); Mean Corpuscular Volume 85 fL (80-100); Mean Platelet Volume 9.3 fL (9.1-12.4); Platelet Count 326 K/mm3 (150-400); RDW Coefficient Variation 13.3 % (11.7-14.2); RDW Standard Deviation 41.7 fL (35.1-46.3); Red Blood Cell Count 4.25 M/mm3 (4.30-5.90); White Blood Cell Count 10.46 K/mm3 (4.00-11.30)
[2019-05-14 05:38] LABS: Alanine Aminotransfer (ALT/SGP 69 U/L (12-78); Albumin, Blood 2.3 g/dL (3.4-5.0); Albumin/Globulin Ratio 0.5 (0.8-1.8); Alk Phos 168 U/L (50-136); Anion Gap 7 mmol/L (6-16); Aspartate Aminotrans (AST/SGOT 43 U/L (12-37); Bilirubin, Total 0.3 mg/dL (0.1-1.0); Blood Urea Nitrogen 22 mg/dL (8-24); CO2, Blood 24 mmol/L (21-32); Calcium, Blood 8.5 mg/dL (8.5-10.1); Chloride, Blood 102 mmol/L (98-108); Globulin, Blood 4.3 g/dL (2.2-4.0); Glomerular Filtration Rate >60 (60-); Glucose, Blood 107 mg/dL (70-99); Potassium, Blood 4.1 mmol/L (3.5-5.5); Sodium, Blood 133 mmol/L (136-145); Total Protein, Blood 6.6 g/dL (6.4-8.2)
[2019-05-14 05:46] LABS: BAND PERCENT MAN 2 % (0-8); BASOPHILS PERCENT MAN 1 % (0-2); EOSINOPHILS ABSOLUTE MAN 0.31 K/mm3 (0.00-0.68); EOSINOPHILS PERCENT MAN 3 % (0-6); LYMPHOCYTES ABSOLUTE MAN 1.35 K/mm3 (0.84-5.20); LYMPHOCYTES PERCENT MAN 13 % (21-46); METAMYELOCYTE PERCENT MAN 1 % (0-0); MONOCYTES ABSOLUTE MAN 0.62 K/mm3 (0.16-1.47); MONOCYTES PERCENT MAN 6 % (4-13); MYELOCYTE PERCENT MAN 1 % (0-0); NEUTROPHILS ABSOLUTE MAN 7.84 K/mm3 (1.96-9.15); SEG NEUTROPHILS PERCENT MAN 73 % (41-73); TOTAL CELLS COUNTED 100
--- NOTE | 2019-05-14 06:21 | NUR ---
SHIFT SUMMARY: NO SIGNIFICANT CHANGES OVER NIGHT. BT HYPOACTIVE IN ALL QUADRANTS. PT DENIES N/V. KELLEY FULL LIQ DIET. CLINIMIX AND LIPIDS INFUSING PER EMAR. PT DENYING PAIN T/O SHIFT. VOIDING WELL. INDEPENDENT IN ROOM. PT REPORTS HAVING 2 BM'S LAST NIGHT AND PASSING FLATUS. PAGE DRAIN INTACT WITH FOAM COMPRESSED.
--- NOTE | 2019-05-14 18:01 | NUR ---
SHIFT SUMMARY PT INDEPENDANT IN ROOM, REPORTED SMALL BM TODAY. LIPIDS AND CLINIMIX DC'D PER ORDERS. DR ADAMES WAS IN TO SEE PT TODAY. PT TOLERATING LIQUIDS WELL. REPORTED NO PAIN OR NAUSEA TODAY.
--- NOTE | 2019-05-14 20:05 | NUR ---
HOSPITALIST NOTIFIED THAT PT IS REQUESTING POWERGLIDE IN HAZEL TO BE TAKEN OUT. EDUCATION ON IMPORTANCE OF KEEPING AN IV IN PLACE PRIOR TO DISCHARGE GIVEN. PT REFUSING TO GIVE REASON TO WHY HE WANTS THE IV TAKEN OUT. WILL RESPECT PATIENT'S RIGHT TO REFUSE CARE AND D/C.
--- NOTE | 2019-05-14 21:05 | NUR ---
PT ALLOWING BOWEL ASSESSMENT, HOWEVER REFUSING REST OF HEAD-TO-TOE ASSESSMENT. PT ALSO REQUESTING THAT STAFF LET HIM SLEEP TONIGHT AND NOT ROUND/GO IN HIS ROOM. PT INFORMED THAT WE WILL BE ROUNDING Q2 HOURS TO ENSURE PATIENT SAFETY.
--- NOTE | 2019-05-15 05:37 | NUR ---
SHIFT SUMMARY: PT REFUSING ALL CARE T/O SHIFT. POWERGLIDE TO HAZEL TAKEN OUT. PT CURRENTLY DOES NOT HAVE IV ACCESS, HOWEVER PLAN IS FOR PT TO DISCHARGE TODAY. INDEPENDENT IN ROOM. NO CONCERNS AT THIS TIME.
[2019-05-15] MEDS ORDERED: LEVO750 PO (10:13)
--- NOTE | 2019-05-15 10:35 | NUR ---
PROVIDED PT WITH DISCHARGE INSTRUCTIONS AND PRINTED MATERIAL, CALLED IN PRESCRIPTIONS FOR ANTIBIOTICS TO [facility]. PT AND HIS STATE UNDERSTANDING OF DISCHARGE INSTRUCTIONS. PT ESCORTED TO AWAITING VEHICLE VIA WHEEL WITH BELONGINS ON LAP AND CARRIED BY
== END 2019-05-15 10:43 | disposition home or self-care (01) | DRG 331 ==
LOC: ER 00:11 → SURS 03:16
PROVIDERS: Emergency Medicine; Family Medicine; Internal Medicine; Surgery; ADMIT Internal Medicine
PROC: 0DN80ZZ Release Small Intestine, Open Approach (ICD-10-PCS; principal; 2019-05-09 13:00)
PROC: 0DT80ZZ Resection of Small Intestine, Open Approach (ICD-10-PCS; 2019-05-09 13:00)
DX: K56.609 Unspecified intestinal obstruction, unspecified as to partial versus complete obstruction (principal); E87.6 Hypokalemia; N28.89 Other specified disorders of kidney and ureter; S31.109S Unspecified open wound of abdominal wall, unspecified quadrant without penetration into peritoneal cavity, sequela; Z87.891 Personal history of nicotine dependence; I12.9 Hypertensive chronic kidney disease with stage 1 through stage 4 chronic kidney disease, or unspecified chronic kidney disease; N18.3 Chronic kidney disease, stage 3 (moderate)
CPT/HCPCS: 36415; 71045; 74018; 74176; 74250; 76770; 80048; 80053; 80069; 81001; 82947; 83690; 83735; 84145; 84478; 84484; 85025; 87086; 88307; 93005; 93010; 96361; 96374; 99285-25; C1751; J0360; J1100; J1650; J1885; J1956; J2250; J2370; J2405; J2543; J2550; J2704; J2710; J3010; J3480; J7030; J7060; J7120